=== PATIENT | male | born 1955 | race Caucasian/White ===

== ENCOUNTER 2019-12-01 06:10 | Emergency (ER) | payer BC ==
--- NOTE | 2019-12-01 06:26 | EDM.PDOC ---
<Digna Gtz - Last Filed: 12/01/19 06:26> ED HPI GENERAL MEDICAL PROBLEM - General Chief Complaint: Chest Pain Stated Complaint: CHEST PAINS Time Seen by Provider: 12/01/19 06:20 Source of Information: Reports: Patient History Limitations: Reports: No Limitations - History of Present Illness INITIAL COMMENTS - FREE TEXT/NARRATIVE: pt arrived with left shoulder and upper chest pain pt developed the pain about 5 am. He was not sweaty at the time of the pain. The duratiopn of the pain is about 1 hour. It is going away at this time. He does have alot of reflux problems and he is on prilosec. He did feel like this was the same discomfort he gets with the reflux. He did say it felike there was air trapped that wouldn, t move. Onset: Today, Sudden, Other ( started at 6 am. ) Duration: Hour(s): Location: Reports: Chest Associated Symptoms: Reports: Chest Pain, Other (pt has chest pain and left shoulder pain. He has not done anything different. He does do farm work. ) Mid-Sternal Chest Pain Score (Numeric/FACES): 4 - Related Data Allergies Allergy/AdvReac Type Severity Reaction Status Date / Time No Known Allergies Allergy Verified 12/01/19 06:24 Home Meds: Home Meds Omeprazole Magnesium [Prilosec Otc] 20 mg PO DAILY 12/01/19 [History] Rosuvastatin Calcium 1 tab PO DAILY 12/01/19 [History] ED ROS GENERAL - Review of Systems Review Of Systems: See Below Constitutional: Reports: No Symptoms HEENT: Reports: No Symptoms Respiratory: Reports: No Symptoms Cardiovascular: Reports: Chest Pain, Other (pt was having left chest pain and shouilder pain. ) Endocrine: Reports: No Symptoms GI/Abdominal: Reports: No Symptoms, Other (pt does have a history of reflux. ) : Reports: No Symptoms Musculoskeletal: Reports: No Symptoms Skin: Reports: No Symptoms ED EXAM, GENERAL - Physical Exam Free Text/Narrative:: at 5 am he developed left chest pain and left shoulder pain. He was not sweaty. He just had this pressure discomfort. He has a history of reflux. He did take a asa 325. Exam Limited By: No Limitations General Appearance: Alert, Other (pt is quite comfortable at this time. ) Ears: Normal TMs Nose: Normal Inspection Throat/Mouth: Normal Inspection Head: Atraumatic Neck: Normal Inspection Respiratory/Chest: No Respiratory Distress Cardiovascular: Regular Rate, Rhythm GI/Abdominal: Soft, Non-Tender (Male) Exam: Deferred Rectal (Males) Exam: Deferred Back Exam: Normal Inspection Extremities: Other (pt does not appear to be tender over the left shoulder. ) Neurological: Alert, Oriented, Normal Cognition Psychiatric: Anxious Course - Vital Signs Last Recorded V/S: Last Vital Signs Temp 98.4 F 12/01/19 06:23 Pulse 99 12/01/19 06:23 Resp 16 12/01/19 06:23 BP 139/78 12/01/19 06:23 Pulse Ox 100 12/01/19 06:23 - Orders/Labs/Meds Orders: Active Orders 24 hr Category Date Time Status EKG Documentation Completion [RC] ASDIRECTED Care 12/01/19 06:20 Active TROPONIN I [CHEM] Routine Lab 12/01/19 09:31 Received EKG 12 Lead [EK] Routine Ther 12/01/19 06:20 Ordered Labs: Laboratory Tests 12/01/19 12/01/19 12/01/19 Range/Units 06:30 06:30 06:30 WBC 15.3 H (4.5-11.0) K/uL RBC 5.35 (4.30-5.90) M/uL Hgb 15.6 H (12.0-15.0) g/dL Hct 47.2 (40.0-54.0) % MCV 88 (80-98) fL MCH 29 (27-31) pg MCHC 33 (32-36) % Plt Count 321 (150-400) K/uL Neut % (Auto) 76 H (36-66) % Lymph % (Auto) 15 L (24-44) % [place] % (Auto) 8 H (2-6) % Eos % (Auto) 1 L (2-4) % Baso % (Auto) 1 (0-1) % Sodium 136 L (140-148) mmol/L Potassium 3.8 (3.6-5.2) mmol/L Chloride 101 (100-108) mmol/L Carbon Dioxide 28 (21-32) mmol/L Anion Gap 10.8 (5.0-14.0) mmol/L BUN 15 (7-18) mg/dL Creatinine 1.1 (0.8-1.3) mg/dL Est Cr Clr Drug Dosing 65.64 mL/min Estimated GFR (MDRD) > 60 (>60) Glucose 116 H (74-106) mg/dL Calcium 8.6 (8.5-10.1) mg/dL Total Bilirubin 0.2 (0.2-1.0) mg/dL AST 27 (15-37) U/L ALT 34 (12-78) U/L Alkaline Phosphatase 104 (46-116) U/L Troponin I < 0.017 (0.000-0.056) ng/mL Total Protein 6.9 (6.4-8.2) g/dL Albumin 2.9 L (3.4-5.0) g/dL Globulin 4.0 H (2.3-3.5) g/dL Albumin/Globulin Ratio 0.7 L (1.2-2.2) Departure - Departure Disposition: Home, Self-Care 01 Clinical Impression: Atypical chest pain Instructions: Nonspecific Chest Pain, Adult Referrals: Austyn Quevedo [employer] [Primary Care Provider] - Forms: ED Department Discharge Additional Instructions: Please follow-up with your primary care at which time I recommend getting a stress test done and follow-up CT scan to determine the etiology of your interstitial lung disease found on chest x-ray. Call or return to the emergency department worsening of symptoms Sepsis Event Note - Focused Exam Vital Signs: Vital Signs Temp Pulse Resp BP Pulse Ox 12/01/19 06:23 98.4 F 99 16 139/78 100 Date Exam was Performed: 12/01/19 Time Exam was Performed: 06:26 - My Orders Last 24 Hours: My Active Orders 12/01/19 09:31 TROPONIN I [CHEM] Routine - Assessment/Plan Last 24 Hours: My Active Orders 12/01/19 09:31 TROPONIN I [CHEM] Routine <WoodrRichard - Last Filed: 12/01/19 09:54> ED EXAM, GENERAL - Physical Exam Exam: See Below Departure - Departure Time of Disposition: 09:53 Condition: Fair Sepsis Event Note - Focused Exam Date Exam was Performed: 12/01/19 Time Exam was Performed: 09:53 - Assessment/Plan Plan: Took over care from Dr. 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
--- NOTE | 2019-12-01 08:51 | CRLCR ---
HISTORY: Chest pain. TECHNIQUE: One view chest. COMPARISON: No prior. FINDINGS: Cardiac size within normal limits accounting for portable technique. There is no pulmonary vascular congestion. There are interstitial opacities bilaterally with differential considerations including interstitial infiltrates, interstitial edema or interstitial lung disease such as fibrosis. There is no pneumothorax or pleural effusion. IMPRESSION: Bilateral interstitial opacities with differential considerations including interstitial infiltrates, interstitial edema or interstitial lung disease such as fibrosis. Dictated by Vasiliy Brown MD @ 12/01/2019 8:48:49 AM Dictated by: Vasiliy Brown MD @ 12/01/2019 08:48:55 (Electronically Signed)
== END 2019-12-01 10:03 | disposition home or self-care (01) ==
LOC: JP.ED 06:10
DX: R07.89 Other chest pain (principal); M25.512 Pain in left shoulder; K21.9 Gastro-esophageal reflux disease without esophagitis; Z79.899 Other long term (current) drug therapy
CPT/HCPCS: 36415; 71045; 80053; 84484; 85025; 93005; 99285-25

== ENCOUNTER 2023-10-16 02:51 | Emergency (ER) | payer MEDICARE, BC ==
[2023-10-16 03:09] LABS: BASOPHILS ABSOLUTE AUTO 0.08 K/uL (0.00-0.10); BASOPHILS PERCENT AUTO 1.1 % (0.1-1.3); HEMOGLOBIN 13.6 g/dL (12.9-16.9); IMMATURE GRAN PERCENT AUTO 0.1 % (0.0-0.7); LYMPHOCYTES ABSOLUTE AUTO 1.91 K/uL (0.8-3.3); LYMPHOCYTES PERCENT AUTO 25.7 % (11.4-47.7); MEAN CORPUSCULAR HEMOGLOBIN 27.9 pg (31.6-35.5); MEAN CORPUSCULAR HGB CONC 32.4 g/dL (31.6-35.5); MEAN CORPUSCULAR VOLUME 86.1 fL (81.4-99.0); MONOCYTES ABSOLUTE AUTO 0.75 K/uL (0.20-0.90); MONOCYTES PERCENT AUTO 10.1 % (3.3-12.6); NEUTROPHILS ABSOLUTE AUTO 4.68 K/uL (1.0-7.6); PLATELET COUNT,PLT 275 K/uL (130-375); RED BLOOD CELL COUNT 4.88 M/uL (4.14-5.76); WHITE BLOOD CELL COUNT,WBC 7.4 K/uL (3.2-11.0)
[2023-10-16 03:12] LABS: IMMATURE GRAN ABSOLUTE AUTO 0.01 K/uL (0.00-0.23)
[2023-10-16 03:26] LABS: PROTHROMBIN TIME 10.3 sec (9.2-10.6)
[2023-10-16 03:32] LABS: A/G RATIO 0.6 (1.2-2.2); ALANINE AMINOTRANSFERASE,ALT 19 U/L (12-78); ALBUMIN 2.8 g/dL (3.4-5.0); ALKALINE PHOSPHATASE 82 U/L (46-116); ASPARTATE AMNIOTRANSFERASE,AST 31 U/L (15-37); BILIRUBIN TOTAL 0.2 mg/dL (0.2-1.0); BLOOD UREA NITROGEN,BUN 10 mg/dL (7-18); CALCIUM 8.9 mg/dL (8.5-10.1); CARBON DIOXIDE,CO2 30 mmol/L (21-32); CHLORIDE,CL 103 mmol/L (100-108); CREATININE 0.9 mg/dL (0.8-1.3); ESTIMATED GFR 93 mL/min (>60); GLUCOSE RANDOM 110 mg/dL (74-106); POTASSIUM,K 4.8 mmol/L (3.6-5.2); PROTEIN TOTAL,TP 7.7 g/dL (6.4-8.2); SODIUM,NA 139 mmol/L (140-148); TROPONIN I HIGH SENSITIVITY 24.3 pg/mL (<=60.3)
[2023-10-16 03:33] LABS: ANION GAP 10.8 mmol/L (5.0-14.0)
[2023-10-16] MEDS ORDERED: Naloxone 0.4 MG/ML SDV IVPUSH PRN (04:00)
[2023-10-16] MEDS: Morphine 4 MG/ML Syringe IVPUSH ONE (04:06)
[2023-10-16] MEDS: Sodium Chloride 0.9% 100 ML IV STA (04:24)
[2023-10-16] MEDS: Iopamidol 755 Mg/ML 100 ML Bottle IV STA (04:24)
[2023-10-16] MEDS: Alum Hydrox/Mag Hydrox/Simeth 15 ML, Lidocaine 2% 15 ML PO ONE (05:13)
[2023-10-16] MEDS: Nitroglycerin 0.4 MG Tab.SL SL ONE (05:58)
[2023-10-16] MEDS: Heparin Sodium 5,000 Units/ML Vial IVPUSH ONE (06:13)
[2023-10-16] MEDS: Heparin Sodium/D5W 25,000 UNITS/500 ML BAG IV SCH (06:28)
[2023-10-16] MEDS: Nitroglycerin/D5W 25 MG/250 ML BOTTLE IV SCH (06:28)
== END 2023-10-16 09:17 | disposition other institution (70) ==
LOC: JP.ED 02:51
DX: I21.4 Non-ST elevation (NSTEMI) myocardial infarction (principal); K21.9 Gastro-esophageal reflux disease without esophagitis; I25.2 Old myocardial infarction; E78.00 Pure hypercholesterolemia, unspecified; E66.9 Obesity, unspecified; Z79.82 Long term (current) use of aspirin; Z79.899 Other long term (current) drug therapy; Z68.26 Body mass index [BMI] 26.0-26.9, adult
CPT/HCPCS: 36415; 71045; 71275; 80053; 84484; 85025; 85379; 85610; 93005; 96365; 96366; 96368; 96375; 99285; A9270; J1644; J2270; J2305; J3490; Q9967; 93010

== ENCOUNTER 2023-10-30 11:46 | Inpatient (IN) | payer MEDICARE, BC ==
[2023-10-30] MEDS ORDERED: Sodium Chloride 0.9% 10 ML Syringe FLUSH PRN (12:11)
[2023-10-30 12:26] LABS: BASE EXCESS ARTERIAL -3.1 mm/L; BICARBONATE,ARTERIAL 18.8 mmol/L (22.0-26.0); CARBOXYHEMOGLOBIN 2.4 % (0.0-1.6); METHEMOGLOBIN 0.5 %; O2 SATURATION ARTERIAL 90.7 % (95.0-98.0); OXYHEMOGLOBIN 88.1 %; PCO2 ARTERIAL 25.8 mmHg (35.0-42.0); PO2 ARTERIAL 60.3 mmHg (75.0-100.0); TOTAL HEMOGLOBIN 12.4 g/dL (13.5-18.0)
[2023-10-30 12:35] LABS: A/G RATIO 0.5 (1.2-2.2); ALANINE AMINOTRANSFERASE,ALT 54 U/L (12-78); ALBUMIN 2.7 g/dL (3.4-5.0); ALKALINE PHOSPHATASE 515 U/L (46-116); ASPARTATE AMNIOTRANSFERASE,AST 54 U/L (15-37); BILIRUBIN TOTAL 0.7 mg/dL (0.2-1.0); BLOOD UREA NITROGEN,BUN 21 mg/dL (7-18); C-REACTIVE PROTEIN 24.14 mg/dL (<0.50); CALCIUM 9.4 mg/dL (8.5-10.1); CARBON DIOXIDE,CO2 23 mmol/L (21-32); CHLORIDE,CL 98 mmol/L (100-108); CREATININE 1.1 mg/dL (0.8-1.3); EST CRCL DRUG DOSING (CG) 62.18 mL/min; ESTIMATED GFR 73 mL/min (>60); GLUCOSE RANDOM 117 mg/dL (74-106); POTASSIUM,K 4.4 mmol/L (3.6-5.2); PRO B-TYPE NATRIUR PEPT,BNPPRO 2653 pg/mL (5-125); PROTEIN TOTAL,TP 8.6 g/dL (6.4-8.2); SODIUM,NA 135 mmol/L (140-148)
[2023-10-30 12:36] LABS: ANION GAP 18.4 mmol/L (5.0-14.0)
[2023-10-30 12:40] LABS: BASOPHILS ABSOLUTE AUTO 0.15 K/uL (0.00-0.10); BASOPHILS PERCENT AUTO 0.9 % (0.1-1.3); HEMATOCRIT 40.8 % (38.4-49.7); HEMOGLOBIN 13.3 g/dL (12.9-16.9); IMMATURE GRAN ABSOLUTE AUTO 0.09 K/uL (0.00-0.23); IMMATURE GRAN PERCENT AUTO 0.5 % (0.0-0.7); LYMPHOCYTES ABSOLUTE AUTO 1.76 K/uL (0.8-3.3); LYMPHOCYTES PERCENT AUTO 10.5 % (11.4-47.7); MEAN CORPUSCULAR HEMOGLOBIN 27.9 pg (31.6-35.5); MEAN CORPUSCULAR HGB CONC 32.6 g/dL (31.6-35.5); MEAN CORPUSCULAR VOLUME 85.5 fL (81.4-99.0); MONOCYTES ABSOLUTE AUTO 0.73 K/uL (0.20-0.90); MONOCYTES PERCENT AUTO 4.4 % (3.3-12.6); NEUTROPHILS ABSOLUTE AUTO 13.99 K/uL (1.0-7.6); NEUTROPHILS PERCENT AUTO 83.7 % (40.0-78.1); PLATELET COUNT,PLT 757 K/uL (130-375); RED BLOOD CELL COUNT 4.77 M/uL (4.14-5.76); WHITE BLOOD CELL COUNT,WBC 16.7 K/uL (3.2-11.0)
[2023-10-30] MEDS ORDERED: Codeine/guaiFENesin 10-100 MG/5 ML Syrup 5 ML Cup PO PRN (16:26)
[2023-10-30] MEDS ORDERED: Magnesium Hydroxide 400 MG/5 ML Susp 30 ML Cup PO PRN (16:26)
[2023-10-30] MEDS ORDERED: Benzonatate 100 MG Cap PO PRN (16:26)
[2023-10-30] MEDS ORDERED: Acetaminophen 325 MG Tab PO PRN (16:26)
[2023-10-30] MEDS ORDERED: Ondansetron 4 MG Tab.DIS PO PRN (16:26)
[2023-10-30] MEDS ORDERED: Sennosides/Docusate Sodium 50-8.6 MG Tab PO PRN (16:26)
[2023-10-30] MEDS ORDERED: Ondansetron 4 MG/2 ML SDV IV PRN (16:26)
[2023-10-30] MEDS: Meropenem 1 GM in Sodium Chloride 0.9% 100 ML IV SCH (16:51)
[2023-10-30 17:06] LABS: CORONAVIRUS COVID-19 NAA NEGATIVE (NEGATIVE); INFLUENZA A NAA NEGATIVE (NEGATIVE); INFLUENZA B NAA NEGATIVE (NEGATIVE); RESPIRATORY SYNCYTIAL VIR NAA NEGATIVE (NEGATIVE)
[2023-10-30] MEDS: HYDROmorphone 1 MG/ML Syringe IVPUSH PRN (18:02)
[2023-10-30] MEDS: Sodium Chloride 0.9% 1,000 ML IV ONE (18:05)
[2023-10-30] MEDS: Sodium Chloride 0.9% 1,000 ML IV SCH (19:16)
[2023-10-30] MEDS: Doxycycline 100 MG in Sodium Chloride 0.9% 100 ML IV SCH (19:17)
[2023-10-30] MEDS: Acetaminophen/HYDROcodone 325-5 MG Tab PO PRN (19:31)
[2023-10-30] MEDS: guaiFENesin 600 MG Tab.ER PO SCH (21:57)
[2023-10-30] MEDS: Lactobacillus Rhamnosus GG (Probiotic) Cap PO SCH (21:58)
[2023-10-30] MEDS: Metoprolol Tartrate 25 MG Tab PO SCH (21:58)
[2023-10-30] MEDS: Amiodarone 200 MG Tab PO SCH (21:58)
[2023-10-31] MEDS: Albuterol 0.083% 2.5 MG/3 ML Neb Soln NEB PRN ×2 (00:19→05:30)
[2023-10-31] MEDS: Albuterol/Ipratropium 3.0-0.5 MG/3 ML Neb Soln NEB STA (01:40)
[2023-10-31] MEDS: Albuterol/Ipratropium 3.0-0.5 MG/3 ML Neb Soln ONE (01:40)
[2023-10-31 01:57] LABS: HEMATOCRIT 32.5 % (38.4-49.7); HEMOGLOBIN 10.8 g/dL (12.9-16.9); MEAN CORPUSCULAR HEMOGLOBIN 28.1 pg (31.6-35.5); MEAN CORPUSCULAR HGB CONC 33.2 g/dL (31.6-35.5); MEAN CORPUSCULAR VOLUME 84.6 fL (81.4-99.0); RED BLOOD CELL COUNT 3.84 M/uL (4.14-5.76); WHITE BLOOD CELL COUNT,WBC 14.9 K/uL (3.2-11.0)
[2023-10-31 02:06] LABS: CALCIUM 8.8 mg/dL (8.5-10.1); CREATININE 0.9 mg/dL (0.8-1.3); MAGNESIUM 1.6 mg/dL (1.8-2.4); POTASSIUM,K 4.7 mmol/L (3.6-5.2)
[2023-10-31 02:07] LABS: ANION GAP 15.7 mmol/L (5.0-14.0)
[2023-10-31 02:27] LABS: TROPONIN I HIGH SENSITIVITY 87.3 pg/mL (<=60.3)
[2023-10-31 03:03] LABS: BASE EXCESS ARTERIAL -2.3 mm/L; BICARBONATE,ARTERIAL 19.9 mmol/L (22.0-26.0); CARBOXYHEMOGLOBIN 2.8 % (0.0-1.6); METHEMOGLOBIN 1.1 %; O2 SATURATION ARTERIAL 94.6 % (95.0-98.0); OXYHEMOGLOBIN 90.9 %; PCO2 ARTERIAL 27.9 mmHg (35.0-42.0); PO2 ARTERIAL 72.2 mmHg (75.0-100.0); TOTAL HEMOGLOBIN 11.7 g/dL (13.5-18.0)
[2023-10-31] MEDS: Furosemide 20 MG/2 ML VIAL IVPUSH ONE (03:40)
[2023-10-31] MEDS ORDERED: Naloxone 0.4 MG/ML SDV IVPUSH PRN (05:20)
[2023-10-31] MEDS: Morphine 2 MG/ML SYRINGE IVPUSH STA (06:10)
[2023-10-31] MEDS: Albuterol 0.083% 2.5 MG/3 ML Neb Soln ONE (06:10)
[2023-10-31] MEDS: Iopamidol 612 MG/ML 100 ML Bottle IV STA (06:54)
[2023-10-31] MEDS: Albuterol/Ipratropium 3.0-0.5 MG/3 ML Neb Soln NEB SCH (06:56)
[2023-10-31] MEDS: Sodium Chloride 0.9% 100 ML IV STA (06:58)
[2023-10-31] MEDS: Rosuvastatin 10 MG Tab PO SCH (08:12)
[2023-10-31] MEDS: Aspirin 325 MG Tab.EC PO SCH (08:12)
[2023-10-31] MEDS: Pantoprazole 40 MG Tab.CR PO SCH (08:13)
[2023-10-31] MEDS: Magnesium Sulfate/Water 2 GM in Premix Bag 1 BAG IV SCH (09:42)
[2023-10-31] MEDS: OFEV 150 MG PO SCH (10:26)
[2023-10-31] MEDS: Magnesium Oxide 400 MG Tab PO SCH (10:27)
== END 2023-10-31 15:20 | DRG 193 ==
LOC: JP.ED 11:46 → JP.ICU 15:47
PROVIDERS: ADMIT Internal Medicine; ATTEND Hospitalist
PROC: 5A0935A Assistance with Respiratory Ventilation, Less than 24 Consecutive Hours, High Flow/Velocity Cannula (ICD-10-PCS; principal; 2023-10-30)
PROC: 4A133R1 Monitoring of Arterial Saturation, Peripheral, Percutaneous Approach (ICD-10-PCS; 2023-10-30)
PROC: 5A09357 Assistance with Respiratory Ventilation, Less than 24 Consecutive Hours, Continuous Positive Airway Pressure (ICD-10-PCS; 2023-10-30)
DX: I50.9 Heart failure, unspecified (principal); J18.9 Pneumonia, unspecified organism; I50.21 Acute systolic (congestive) heart failure; J96.01 Acute respiratory failure with hypoxia; I25.10 Atherosclerotic heart disease of native coronary artery without angina pectoris; E78.00 Pure hypercholesterolemia, unspecified; K21.9 Gastro-esophageal reflux disease without esophagitis; E66.9 Obesity, unspecified; D72.829 Elevated white blood cell count, unspecified; I48.0 Paroxysmal atrial fibrillation; I25.2 Old myocardial infarction; Z95.1 Presence of aortocoronary bypass graft; Z79.899 Other long term (current) drug therapy; Z79.51 Long term (current) use of inhaled steroids; Z79.82 Long term (current) use of aspirin; Z95.5 Presence of coronary angioplasty implant and graft; Z87.81 Personal history of (healed) traumatic fracture; Z68.24 Body mass index [BMI] 24.0-24.9, adult
CPT/HCPCS: 0241U; 36415; 36600; 71045; 71250; 71275; 80048; 80053; 82803; 83605; 83735; 83880; 84145; 84484; 85025; 85027; 86140; 87070; 87205; 93005; 94640; 94660; 99222; 99238; 99285; 93010; A9270-GY; J1170; J1940; J2185; J3370; J3475; J3490; J7030; J7050; J7620; Q9967

== ENCOUNTER 2023-11-19 16:12 | Emergency (ER) | payer MEDICARE, BC ==
[2023-11-19 16:41] LABS: BASOPHILS ABSOLUTE AUTO 0.03 K/uL (0.00-0.10); BASOPHILS PERCENT AUTO 0.2 % (0.1-1.3); EOSINOPHILS PERCENT AUTO 0.5 % (0.0-5.4); HEMATOCRIT 45.4 % (38.4-49.7); HEMOGLOBIN 14.6 g/dL (12.9-16.9); IMMATURE GRAN ABSOLUTE AUTO 0.09 K/uL (0.00-0.23); IMMATURE GRAN PERCENT AUTO 0.5 % (0.0-0.7); LYMPHOCYTES ABSOLUTE AUTO 3.23 K/uL (0.8-3.3); LYMPHOCYTES PERCENT AUTO 16.3 % (11.4-47.7); MEAN CORPUSCULAR HEMOGLOBIN 28.5 pg (31.6-35.5); MEAN CORPUSCULAR HGB CONC 32.2 g/dL (31.6-35.5); MEAN CORPUSCULAR VOLUME 88.5 fL (81.4-99.0); MONOCYTES ABSOLUTE AUTO 1.11 K/uL (0.20-0.90); MONOCYTES PERCENT AUTO 5.6 % (3.3-12.6); NEUTROPHILS ABSOLUTE AUTO 15.24 K/uL (1.0-7.6); NEUTROPHILS PERCENT AUTO 76.9 % (40.0-78.1); PLATELET COUNT,PLT 149 K/uL (130-375); RED BLOOD CELL COUNT 5.13 M/uL (4.14-5.76); WHITE BLOOD CELL COUNT,WBC 19.8 K/uL (3.2-11.0)
[2023-11-19 17:05] LABS: A/G RATIO 0.7 (1.2-2.2); ALANINE AMINOTRANSFERASE,ALT 20 U/L (12-78); ALBUMIN 2.4 g/dL (3.4-5.0); ALKALINE PHOSPHATASE 118 U/L (46-116); ASPARTATE AMNIOTRANSFERASE,AST 19 U/L (15-37); BILIRUBIN TOTAL 0.5 mg/dL (0.2-1.0); BLOOD UREA NITROGEN,BUN 15 mg/dL (7-18); CARBON DIOXIDE,CO2 27 mmol/L (21-32); CHLORIDE,CL 101 mmol/L (100-108); CREATININE 0.7 mg/dL (0.8-1.3); EST CRCL DRUG DOSING (CG) 97.71 mL/min; ESTIMATED GFR 100 mL/min (>60); GLUCOSE RANDOM 73 mg/dL (74-106); MAGNESIUM 1.7 mg/dL (1.8-2.4); PHOSPHORUS 2.6 mg/dL (2.5-4.9); POTASSIUM,K 3.6 mmol/L (3.6-5.2); PRO B-TYPE NATRIUR PEPT,BNPPRO 874 pg/mL (5-125); PROTEIN TOTAL,TP 5.7 g/dL (6.4-8.2); SODIUM,NA 134 mmol/L (140-148)
[2023-11-19 17:27] LABS: ANION GAP 9.6 mmol/L (5.0-14.0)
[2023-11-19 17:28] LABS: C-REACTIVE PROTEIN < 0.50 mg/dL (<0.50); TROPONIN I HIGH SENSITIVITY 75.8 pg/mL (<=60.3)
[2023-11-19 17:34] LABS: APPEARANCE,URINE CLEAR (CLEAR); BILIRUBIN,URINE NEGATIVE (NEGATIVE); COLOR,URINE YELLOW (YELLOW); GLUCOSE,URINE NEGATIVE (NEGATIVE); KETONES,URINE NEGATIVE (NEGATIVE); LEUKOCYTE ESTERASE,URINE NEGATIVE (NEGATIVE); NITRITE,URINE NEGATIVE (NEGATIVE); OCCULT BLOOD,URINE TRACE-INTACT (NEGATIVE); PROTEIN,URINE NEGATIVE (NEGATIVE); UROBILINOGEN,URINE 0.2 EU/dL (0.2-1.0)
[2023-11-19 17:40] LABS: AMORPHOUS SEDIMENT,URINE NOT SEEN; BACTERIA,URINE NOT SEEN; EPITHELIAL CELLS,URINE RARE; MUCUS,URINE NOT SEEN; RBC,URINE 0-5 (0-5); WBC,URINE NOT SEEN (0-5)
== END 2023-11-19 19:27 | disposition home or self-care (01) ==
LOC: JP.ED 16:12
DX: R07.89 Other chest pain (principal); E78.00 Pure hypercholesterolemia, unspecified; I25.2 Old myocardial infarction; K21.9 Gastro-esophageal reflux disease without esophagitis; Z79.82 Long term (current) use of aspirin; Z79.899 Other long term (current) drug therapy; Z79.51 Long term (current) use of inhaled steroids; Z95.5 Presence of coronary angioplasty implant and graft; Z95.1 Presence of aortocoronary bypass graft
CPT/HCPCS: 36415; 71046; 71046-26; 80053; 81001; 83735; 83880; 84100; 84484; 85025; 85610; 85730; 86140; 93005; 99285

== ENCOUNTER 2025-06-26 11:38 | Emergency (ER) | payer MEDICARE, BC ==
[2025-06-26 12:49] LABS: CORONAVIRUS COVID-19 NAA NEGATIVE (NEGATIVE); INFLUENZA A NAA POSITIVE (NEGATIVE); INFLUENZA B NAA NEGATIVE (NEGATIVE); RESPIRATORY SYNCYTIAL VIR NAA NEGATIVE (NEGATIVE)
[2025-06-26 13:14] LABS: BASE EXCESS VENOUS 0.9 mm/L; BASOPHILS ABSOLUTE AUTO 0.01 K/uL (0.00-0.10); BASOPHILS PERCENT AUTO 0.2 % (0.1-1.3); BICARBONATE,VENOUS 26.0 mmol/L; EOSINOPHILS ABSOLUTE AUTO 0.01 K/uL (0.00-0.40); EOSINOPHILS PERCENT AUTO 0.2 % (0.0-5.4); IMMATURE GRAN ABSOLUTE AUTO 0.02 K/uL (0.00-0.23); IMMATURE GRAN PERCENT AUTO 0.3 % (0.0-0.7); LYMPHOCYTES ABSOLUTE AUTO 0.68 K/uL (0.8-3.3); LYMPHOCYTES PERCENT AUTO 10.9 % (11.4-47.7); MONOCYTES ABSOLUTE AUTO 0.84 K/uL (0.20-0.90); MONOCYTES PERCENT AUTO 13.5 % (3.3-12.6); NEUTROPHILS ABSOLUTE AUTO 4.68 K/uL (1.0-7.6); NEUTROPHILS PERCENT AUTO 74.9 % (40.0-78.1); O2 SATURATION VENOUS 37.9; OXYHEMOGLOBIN 37.2 %; PCO2 VENOUS 45.3 mm/Hg; PH,VENOUS 7.377 (7.350-7.450); PLATELET COUNT,PLT 145 K/uL (130-375); RED BLOOD CELL COUNT 5.30 M/uL (4.14-5.76); TOTAL HEMOGLOBIN 15.2 g/dL (13.5-18.0); WHITE BLOOD CELL COUNT,WBC 6.2 K/uL (3.2-11.0)
[2025-06-26 13:17] LABS: PO2 VENOUS 25.7 mm/Hg
[2025-06-26 13:48] LABS: A/G RATIO 0.6 (1.2-2.2); ALANINE AMINOTRANSFERASE,ALT 21 U/L (12-78); ASPARTATE AMNIOTRANSFERASE,AST 36 U/L (15-37); BILIRUBIN TOTAL 0.5 mg/dL (0.2-1.0); BLOOD UREA NITROGEN,BUN 13 mg/dL (7-18); CARBON DIOXIDE,CO2 27 mmol/L (21-32); CHLORIDE,CL 100 mmol/L (100-108); CREATININE 1.1 mg/dL (0.8-1.3); EST CRCL DRUG DOSING (CG) 60.45 mL/min; ESTIMATED GFR 72 mL/min (>60); GLUCOSE RANDOM 99 mg/dL (74-106); POTASSIUM,K 4.1 mmol/L (3.6-5.2); PRO B-TYPE NATRIUR PEPT,BNPPRO 214 pg/mL (5-125); PROTEIN TOTAL,TP 7.2 g/dL (6.4-8.2); SODIUM,NA 136 mmol/L (140-148)
[2025-06-26 13:49] LABS: TROPONIN I HIGH SENSITIVITY 14.9 pg/mL (<=60.3)
[2025-06-26] MEDS ORDERED: Sodium Chloride 0.9% 10 ML Syringe FLUSH PRN (14:32)
[2025-06-26] MEDS ORDERED: Lidocaine 1% 2 ML ONE (14:32)
[2025-06-26] MEDS ORDERED: Iopamidol 755 Mg/ML 100 ML Bottle IV SCH (14:45)
== END 2025-06-26 16:20 | disposition home or self-care (01) ==
LOC: JP.ED 11:38
DX: J10.1 Influenza due to other identified influenza virus with other respiratory manifestations (principal); I25.10 Atherosclerotic heart disease of native coronary artery without angina pectoris; I25.2 Old myocardial infarction; K21.9 Gastro-esophageal reflux disease without esophagitis; Z95.5 Presence of coronary angioplasty implant and graft; Z79.899 Other long term (current) drug therapy; Z79.82 Long term (current) use of aspirin
CPT/HCPCS: 36410; 36415; 71045; 71045-26; 71275; 71275-26; 80053; 82803; 83605; 83880; 84484; 85025; 85379; 86140; 87637; 87651; 93005; 93010; 94640; 96360; 99284; 99285-25; A9270-GY; J2003; J7030